=== PATIENT | female | born 1955 | race Caucasian/White ===

== ENCOUNTER 2020-10-17 21:42 | Emergency (ER) | payer OTHER ==
[2020-10-17 21:53] VITALS: BP 166/89; PULSE 88; RESP 18; TEMP 97.8
[2020-10-17] MEDS ORDERED: HYDROcodone/APAP 5-325MG 1 EACH TAB PO STA (22:25)
[2020-10-17] MEDS ORDERED: diazePAM 5 MG TAB PO STA (22:25)
--- NOTE | 2020-10-17 22:29 | ED ---
Recheck HPI - General Chief Complaint: Recheck/Abnormal Lab/Rx Stated Complaint: unable to walk, sent from Time Seen by Provider: 10/17/20 21:57 Source: patient, RN notes reviewed, old records reviewed Mode of arrival: ambulatory Limitations: no limitations - History of Present Illness Initial Comments: This is a 64-year-old female to the emergency department today. Patient presents from out of town for evaluation regarding imaging. Patient has recently lost strength in both legs loss inability to ambulate. Was seen in the hospital in the [facility] for this issue and told to seek care there large or hospital as soon as possible. He was seen in the emergency room yesterday Presented to Hospital after all day drive today. Patient herself denies loss of bowel or bladder. She does have severe back pain which is been going on and which she sought to seek evaluation from the emergency department in the first place. Patient is no medical history and takes no medication back pain is going on for 6 months inability to ambulate started yesterday MD Complaint: other (Evaluation for abnormal computed tomography scan findings) -: minutes(s) Initial Visit For: other (Back pain and difficulty with ambulation) Returns Today for: persistent/worsening pain related to initial visit, other (Evaluation of abnormal CT scans) Symptoms Since Prior Visit: worsening pain Associated Symptoms: none Treatments Prior to Arrival: other (none) - Related Data Home Medications Medication Instructions Recorded Confirmed Ibuprofen [Motrin Ib] 800 mg PO Q8H PRN 10/17/20 10/17/20 Allergies Allergy/AdvReac Type Severity Reaction Status Date / Time Sulfa (Sulfonamide AdvReac Rapid Verified 10/17/20 22:31 Antibiotics) Heart Rate Review of Systems ROS Statement: Those systems with pertinent positive or pertinent negative responses have been documented in the HPI. ROS Other: All systems not noted in ROS Statement are negative. Past Medical History Past Medical History: No Reported History History of Any Multi-Drug Resistant Organisms: None Reported Past Surgical History: Section Smoking Status: Never smoker Past Alcohol Use History: None Reported Past Drug Use History: None Reported General Exam - General Exam Comments Initial Comments: Patient is unable to ambulate, states that she cannot bear her own weight Limitations: no limitations General appearance: alert, in no apparent distress Head exam: Present: atraumatic, normocephalic, normal inspection Eye exam: Present: normal appearance, PERRL, EOMI. Absent: scleral icterus, conjunctival injection, periorbital swelling ENT exam: Present: normal exam, mucous membranes moist Neck exam: Present: normal inspection. Absent: tenderness, meningismus, lymphadenopathy Respiratory exam: Present: normal lung sounds bilaterally. Absent: respiratory distress, wheezes, rales, rhonchi, stridor Cardiovascular Exam: Present: regular rate, normal rhythm, normal heart sounds. Absent: systolic murmur, diastolic murmur, rubs, gallop, clicks GI/Abdominal exam: Present: soft, normal bowel sounds. Absent: distended, tenderness, guarding, rebound, rigid Extremities exam: Present: normal inspection, full ROM, normal capillary refill. Absent: tenderness, pedal edema, joint swelling, calf tenderness Back exam: Present: normal inspection Neurological exam: Present: alert, oriented X3, CN II-XII intact Psychiatric exam: Present: normal affect, normal mood Skin exam: Present: warm, dry, intact, normal color. Absent: rash Course Vital Signs 10/17/20 21:50 Temperature 97.8 F Pulse Rate 88 Respiratory 18 Rate Blood Pressure 166/89 O2 Sat by Pulse 94 L Oximetry - Reevaluation(s) Reevaluation #1: 10/17/20 22:44 Medical record is reviewed 10/17/20 22:44 Reevaluation #2: 10/17/20 22:44 Outpatient computed tomography scan is reviewed Reevaluation #3: 10/17/20 22:44 Spoke patient length regarding findings and thought process here in the emergency room. 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 Patient is unsure her actual history is a nonsmoker and has had back pain for 6 months. She was evaluated yesterday due to inability to ambulate and presents to hospital for further evaluation. Here in this emergency department patient's decides that they want to be seen at [facility] and decided to drive himself Disposition Clinical Impression: Weakness, Spinal cord tumor, Back pain, Lumbar nerve root compression Disposition: HOME SELF-CARE Condition: Serious Instructions (If sedation given, give patient instructions): Back Pain (ED) Is patient prescribed a controlled substance at d/c from ED?: No Referrals: None,Stated [Primary Care Provider] - 1-2 days
== END 2020-10-17 22:50 | disposition home or self-care (01) ==
LOC: EC 21:42
DX: D49.7 Neoplasm of unspecified behavior of endocrine glands and other parts of nervous system (principal); G54.4 Lumbosacral root disorders, not elsewhere classified; R53.1 Weakness; Z88.2 Allergy status to sulfonamides
CPT/HCPCS: 99283